=== PATIENT | female | born 1960 | race African-American/Black ===

== ENCOUNTER 2016-11-14 20:34 | Emergency (ER) | payer MEDICAID ==
[~2016-11-14] VITALS: Ht 167.6 cm; Wt 99.8 kg
[2016-11-14 20:34] VITALS: BP 165/89
--- NOTE | 2016-11-14 21:09 | NUR ---
PAC CANDY AT BEDSIDE FOR EVAL.
--- NOTE | 2016-11-14 21:10 | NUR ---
PAC CANDY AT BEDSIDE FOR LAC REPAIR
[2016-11-14] MEDS ORDERED: TDAP [DIPH/PERTUSSIS/TET] 0.5 ML VIAL IM ONE ×2 (21:12→21:30)
== END 2016-11-14 21:30 | disposition home or self-care (01) ==
LOC: ER 20:35
DX: S61.211A Laceration without foreign body of left index finger without damage to nail, initial encounter (principal); Z88.0 Allergy status to penicillin; W45.8XXA Other foreign body or object entering through skin, initial encounter; Y93.89 Activity, other specified; Y92.89 Other specified places as the place of occurrence of the external cause; Y99.8 Other external cause status
CPT/HCPCS: 90715

== ENCOUNTER 2018-10-10 13:13 | Emergency (ER) | payer BC, MEDICAID ==
[~2018-10-10] VITALS: Ht 167.6 cm; Wt 90.7 kg
[2018-10-10] MEDS ORDERED: ACETAMINOPHEN ES 500 MG TABLET ONE (13:44)
[2018-10-10] MEDS ORDERED: ACETAMINOPHEN ES 500 MG TABLET PO ONE (14:00)
[2018-10-10 15:18] VITALS: BP 136/85
== END 2018-10-10 15:00 | disposition home or self-care (01) ==
LOC: ER 13:17
DX: S93.492A Sprain of other ligament of left ankle, initial encounter (principal); S40.012A Contusion of left shoulder, initial encounter; S90.32XA Contusion of left foot, initial encounter; R51 Headache; J45.909 Unspecified asthma, uncomplicated; Z98.890 Other specified postprocedural states; Z88.0 Allergy status to penicillin; W18.39XA Other fall on same level, initial encounter; Y93.01 Activity, walking, marching and hiking; Y92.89 Other specified places as the place of occurrence of the external cause; Y99.8 Other external cause status
CPT/HCPCS: 73030-TC; 73610-TC; 73630-TC

== ENCOUNTER 2019-05-27 16:01 | Emergency (ER) | payer BC ==
[~2019-05-27] VITALS: Ht 167.6 cm; Wt 90.7 kg
[2019-05-27 16:16] VITALS: BP 120/73
--- NOTE | 2019-05-27 17:25 | NUR ---
Patient discharged to home in stable condition. Written and verbal after care instructions given. Patient verbalizes understanding of instruction.
== END 2019-05-27 18:09 | disposition home or self-care (01) ==
LOC: ER 16:05
DX: J02.9 Acute pharyngitis, unspecified (principal); Z98.890 Other specified postprocedural states; Z88.0 Allergy status to penicillin
CPT/HCPCS: 86403-TC; 87070-TC

== ENCOUNTER 2021-06-08 22:34 | Emergency (ER) | payer OTHER ==
[~2021-06-08] VITALS: Ht 167.6 cm; Wt 86.2 kg
--- NOTE | 2021-06-08 23:34 | NUR ---
TO ER BED 4. BIBSELF C/O HEAD, NECK, AND BACK PAIN POST FALL FROM A CHAIR AT WORK. PT STATES SHE "HEARD A POP ON HER NECK WHEN SHE HIT HER HEAD". +NAUSEA. PT DENIES ANY CHEST PAIN OR SOB. CONNECTED TO MONITOR. AWAITING MD LEIGH
--- NOTE | 2021-06-09 00:10 | NUR ---
LEFT FOR CT
[2021-06-09] MEDS ORDERED: ACETAMINOPHEN 325 MG TABLET ONE (00:41)
[2021-06-09] MEDS: ACETAMINOPHEN 325 MG TABLET PO ONE (00:47)
--- NOTE | 2021-06-09 01:17 | NUR ---
CALLED [facility] FOR IMAGING READ
[2021-06-09] MEDS ORDERED: DICL50TA9 PO (01:37)
--- NOTE | 2021-06-09 01:46 | NUR ---
Patient discharged to home in stable condition. Written and verbal after care instructions given. Patient verbalizes understanding of instruction.
[2021-06-09 02:02] VITALS: BP 139/74
== END 2021-06-09 02:02 | disposition home or self-care (01) ==
LOC: ER 22:40
DX: M54.50 Low back pain, unspecified (principal); Z87.09 Personal history of other diseases of the respiratory system; Z85.43 Personal history of malignant neoplasm of ovary; Z88.0 Allergy status to penicillin; W18.39XA Other fall on same level, initial encounter; Y93.89 Activity, other specified; Y92.89 Other specified places as the place of occurrence of the external cause; Y99.0 Civilian activity done for income or pay
CPT/HCPCS: 70450-TC; 72125-TC

== ENCOUNTER 2024-01-03 16:23 | Emergency (ER) | payer BC ==
[~2024-01-03] VITALS: Ht 167.6 cm; Wt 97.5 kg
[~2024-01-03 16:23] MED LIST: DICL50TA9 PO
[2024-01-03 16:34] VITALS: BP 148/80; TEMP 98
[2024-01-03] MEDS ORDERED: IBUPROFEN 600 MG TABLET ONE (17:59)
[2024-01-03] MEDS ORDERED: ACETAMINOPHEN 325 MG TABLET ONE (17:59)
[2024-01-03] MEDS ORDERED: TDAP [DIPH/PERTUSSIS/TET] 0.5 ML VIAL IM ONE (17:59)
[2024-01-03] MEDS: IBUPROFEN 600 MG TABLET PO ONE (18:05)
[2024-01-03] MEDS: ACETAMINOPHEN 325 MG TABLET PO ONE (18:05)
[2024-01-03] MEDS: TDAP [DIPH/PERTUSSIS/TET] 0.5 ML VIAL IM ONE (18:06)
[2024-01-03 18:47] VITALS: O2SAT 97
== END 2024-01-03 18:48 | disposition home or self-care (01) ==
LOC: ER 16:27
DX: S61.212A Laceration without foreign body of right middle finger without damage to nail, initial encounter (principal); F17.200 Nicotine dependence, unspecified, uncomplicated; Z23 Encounter for immunization; Z88.0 Allergy status to penicillin; W26.8XXA Contact with other sharp object(s), not elsewhere classified, initial encounter; Y93.89 Activity, other specified; Y92.89 Other specified places as the place of occurrence of the external cause; Y99.8 Other external cause status
CPT/HCPCS: 99283; 12001; 90471; 90715; A6403

== ENCOUNTER 2024-12-30 19:32 | Emergency (ER) | payer BC, MEDICARE ==
[~2024-12-30] VITALS: Ht 170.2 cm; Wt 95.3 kg
[2024-12-30 20:11] VITALS: TEMP 97.9
[2024-12-30 21:12] VITALS: BP 158/84; O2SAT 99
== END 2024-12-30 21:13 | disposition home or self-care (01) ==
LOC: ER 19:33
DX: S61.211A Laceration without foreign body of left index finger without damage to nail, initial encounter (principal); Z88.0 Allergy status to penicillin; W27.2XXA Contact with scissors, initial encounter; Y93.89 Activity, other specified; Y92.89 Other specified places as the place of occurrence of the external cause; Y99.8 Other external cause status

== ENCOUNTER 2025-01-07 17:29 | Emergency (ER) | payer BC ==
[~2025-01-07] VITALS: Ht 167.6 cm; Wt 99.8 kg
[2025-01-07 17:58] VITALS: BP 125/72; TEMP 98.4
[2025-01-07] MEDS ORDERED: MUPI22OI2 TP (18:20)
[2025-01-07 18:26] VITALS: O2SAT 99
== END 2025-01-07 18:27 | disposition home or self-care (01) ==
LOC: ER 17:29
DX: S61.211D Laceration without foreign body of left index finger without damage to nail, subsequent encounter (principal); Z48.02 Encounter for removal of sutures; Z78.0 Asymptomatic menopausal state; Z88.0 Allergy status to penicillin; X58.XXXD Exposure to other specified factors, subsequent encounter